=== PATIENT | female | born 1995 | race African-American/Black ===

== ENCOUNTER 2019-11-15 10:12 | Emergency (ER) | payer SELFPAY ==
--- NOTE | 2019-11-15 10:15 | EDM.PDOC ---
ED HPI GENERAL MEDICAL PROBLEM - General Chief Complaint: Genitourinary Problem Stated Complaint: SPOKE TO NURSE Time Seen by Provider: 11/15/19 10:14 Source of Information: Reports: Patient History Limitations: Reports: No Limitations - History of Present Illness INITIAL COMMENTS - FREE TEXT/NARRATIVE: HISTORY AND PHYSICAL: History of present illness: Patient is a 23-year-old female presents to the ED with concern of possible STD. Patient states she had intercourse last night with a new partner. She states she has been having some burning with urination this morning. She also wants to check to see if she is . She denies abdominal pain, flank pain , hematuria, fevers, chills or vaginal discharge. Patient states LMP approximately in the middle of October and believes she is due for her period in 10 days. Review of systems: As per history of present illness and below otherwise all systems reviewed and negative. Past medical history: As per history of present illness and as reviewed below otherwise noncontributory. Surgical history: As per history of present illness and as reviewed below otherwise noncontributory. Social history: No reported history of drug or alcohol abuse. Family history: As per history of present illness and as reviewed below otherwise noncontributory. Physical exam: General: Patient sitting comfortably in no acute distress and nontoxic appearing HEENT: Atraumatic, normocephalic, pupils reactive, negative for conjunctival pallor or scleral icterus, mucous membranes moist, throat clear, neck supple, nontender, trachea midline. No meningeal signs. Lungs: Clear to auscultation, breath sounds equal bilaterally, chest nontender. Heart: S1S2, regular, negative for clicks, rubs, or overt murmur. Abdomen: Soft, nondistended, nontender. Negative for masses or hepatosplenomegaly. Negative for costovertebral tenderness. No rigidity, rebound , guarding. Pelvis: Stable nontender. Genitourinary: Deferred. Rectal: Deferred. Extremities: Atraumatic, negative for cords or calf pain. Neurovascular unremarkable. Neuro: Awake, alert, oriented. Cranial nerves II through XII unremarkable. Cerebellum unremarkable. Motor and sensory unremarkable throughout. Exam nonfocal. Notes: Discussed with patient that a test would not be positive if she just had intercourse last night and she would need to take a home test if she misses her next period. Diagnostics: UA, urine hcg, gonorrhea/chlamydia Therapeutics: 1g Azithromycin PO 250mg Rocephin IM Prescriptions: none Impression: Concern for STD Plan: If you receive a call that your results are positive, no intercourse for 2 weeks and please let any sexual partners know Follow up with primary care provider Return to ED as needed as discussed Definitive disposition and diagnosis as appropriate pending reevaluation and review of above. - Related Data Allergies Allergy/AdvReac Type Severity Reaction Status Date / Time No Known Allergies Allergy Verified 11/15/19 10:39 Home Meds: Home Meds . [No Known Home Meds] 11/15/19 [History] ED ROS GENERAL - Review of Systems Review Of Systems: Comprehensive ROS is negative, except as noted in HPI. ED EXAM, RENAL/ - Physical Exam Exam: See Below (see dictation) Course - Vital Signs Last Recorded V/S: Last Vital Signs Temp 97.2 F 11/15/19 10:20 Pulse 100 11/15/19 10:20 Resp 18 11/15/19 10:20 BP 109/80 11/15/19 10:20 Pulse Ox 99 11/15/19 10:20 - Orders/Labs/Meds Orders: Active Orders 24 hr Category Date Time Status CHLAMYDIA AND GONORRHEA BY TMA Stat Lab 11/15/19 10:40 Received CULTURE URINE [RM] Stat Lab 11/15/19 10:20 Received Azithromycin [Zithromax] Med 11/15/19 10:53 Stat 1,000 mg PO NOW STA cefTRIAXone [Rocephin] 250 mg Med 11/15/19 10:53 Ordered Lidocaine 1% [Xylocaine-MPF 1%] 1 ml IM ONETIME Labs: Laboratory Tests 11/15/19 11/15/19 Range/Units 10:20 10:20 Urine Color YELLOW Urine Appearance CLEAR Urine pH 7.0 (5.0-8.0) Ur Specific Barnard 1.010 (1.001-1.035) Urine Protein NEGATIVE (NEGATIVE) mg/dL Urine Glucose (UA) NEGATIVE (NEGATIVE) mg/dL Urine Ketones NEGATIVE (NEGATIVE) mg/dL Urine Occult Blood NEGATIVE (NEGATIVE) Urine Nitrite NEGATIVE (NEGATIVE) Urine Bilirubin NEGATIVE (NEGATIVE) Urine Urobilinogen 0.2 (<2.0) EU/dL Ur Leukocyte Esterase SMALL H (NEGATIVE) Urine RBC 0-2 (0-2/HPF) Urine WBC 2-5 (0-5/HPF) Ur Epithelial Cells MODERATE (NONE-FEW) Urine Bacteria RARE (NEGATIVE) Urine HCG, Qual NEGATIVE (NEGATIVE) Departure - Departure Time of Disposition: 10:55 Disposition: Home, Self-Care 01 Condition: Good Clinical Impression: Concern about STD in female without diagnosis - Discharge Information Referrals: PCP,None [Primary Care Provider] - Forms: ED Department Discharge Additional Instructions: The following information is given to patients seen in the emergency department who are being discharged to home. This information is to outline your options for follow-up care. We provide all patients seen in our emergency department with a follow-up referral. The need for follow-up, as well as the timing and circumstances, are variable depending upon the specifics of your emergency department visit. If you don't have a primary care physician on staff, we will provide you with a referral. We always advise you to contact your personal physician following an emergency department visit to inform them of the circumstance of the visit and for follow-up with them and/or the need for any referrals to a consulting specialist. The emergency department will also refer you to a specialist when appropriate. This referral assures that you have the opportunity for follow-up care with a specialist. All of these measure are taken in an effort to provide you with optimal care, which includes your follow-up. Under all circumstances we always encourage you to contact your private physician who remains a resource for coordinating your care. When calling for follow-up care, please make the office aware that this follow-up is from your recent emergency room visit. If for any reason you are refused follow-up, please contact the [facility] Emergency Department at and asked to speak to the emergency department charge nurse. [facility] [address] [place] [id number] [id number] If you receive a call that your results are positive, no intercourse for 2 weeks and please let any sexual partners know Follow up with primary care provider Return to ED as needed as discussed Sepsis Event Note - Focused Exam Vital Signs: Vital Signs Temp Pulse Resp BP Pulse Ox 11/15/19 10:20 97.2 F 100 18 109/80 99 Date Exam was Performed: 11/15/19 Time Exam was Performed: 10:54 - My Orders Last 24 Hours: My Active Orders 11/15/19 10:20 CULTURE URINE [RM] Stat 11/15/19 10:40 CHLAMYDIA AND GONORRHEA BY TMA Stat 11/15/19 10:53 Azithromycin [Zithromax] 1,000 mg PO NOW STA cefTRIAXone [Rocephin] 250 mg Lidocaine 1% [Xylocaine-MPF 1%] 1 ml IM ONETIME - Assessment/Plan Last 24 Hours: My Active Orders 11/15/19 10:20 CULTURE URINE [RM] Stat 11/15/19 10:40 CHLAMYDIA AND GONORRHEA BY TMA Stat 11/15/19 10:53 Azithromycin [Zithromax] 1,000 mg PO NOW STA cefTRIAXone [Rocephin] 250 mg Lidocaine 1% [Xylocaine-MPF 1%] 1 ml IM ONETIME
[2019-11-15] MEDS ORDERED: Azithromycin 250 MG Tab PO STA (10:53)
[2019-11-15] MEDS ORDERED: cefTRIAXone 250 MG in Lidocaine 1% 1 ML IM ONE (10:53)
== END 2019-11-15 11:31 | disposition home or self-care (01) ==
LOC: MW.ED 10:12
DX: Z11.3 Encounter for screening for infections with a predominantly sexual mode of transmission (principal)
CPT/HCPCS: 81001; 81025; 87086; 87491; 87591; 96372; 99283; A9270; J0696; J2001; 99282